=== PATIENT | female | born 1940 | race Caucasian/White ===

== ENCOUNTER 2020-02-28 09:48 | Outpatient (CLI) | payer MEDICARE, SELFPAY ==
[2020-02-28 10:51] LABS: Alanine Aminotransferase 20 U/L (4-35); Albumin Level 4.5 g/dL (3.5-5.1); Alkaline Phosphatase 87 U/L (38-126); Anion Gap 9 mmol/L (8-16); Aspartate Amino Transferase 28 U/L (14-36); Bilirubin,Total 1.7 mg/dL (0.2-1.3); Blood Urea Nitrogen 18 mg/dL (7-17); Calcium 10.2 mg/dL (8.4-10.2); Carbon Dioxide 26 mmol/L (22-30); Chloride 99 mmol/L (98-107); Cholesterol 202 mg/dL (0-200); Estimated Glomerular Filt Rate 43; Glucose 94 mg/dL (65-105); HDL Direct 83 mg/dL; Potassium 4.1 mmol/L (3.4-5.0); Sodium 134 mmol/L (137-145); Triglycerides 87 mg/dL (<150)
[2020-02-28 11:02] LABS: LDL Cholesterol Direct 85 mg/dL
== END 2020-02-28 09:49 | disposition home or self-care (01) ==
PROVIDERS: PCP Internal Medicine; Visit Provider Internal Medicine Cardiovascular Disease
DX: E78.49 Other hyperlipidemia (principal)
CPT/HCPCS: 36415; 80053; 80061

== ENCOUNTER 2021-02-05 13:45 | Outpatient (RCR) | payer MEDICARE, SELFPAY ==
[2021-02-05] MEDS: diphenhydrAMINE HCl CAP 25 MG CAPSULE PO (14:12)
[2021-02-05] MEDS: FAMOTIDINE 20 MG TABLET PO (14:12)
[2021-02-05] MEDS: ACETAMINOPHEN 325 MG TABLET 650 MG PO (14:12)
[2021-02-05 14:26] VITALS: BP 145/63; PULSE 84; RESP 18; TEMP 37.2; O2SAT 97
[2021-02-05 15:58] VITALS: BP 179/64; PULSE 69; RESP 16; TEMP 36.4; O2SAT 100
--- NOTE | 2021-02-05 16:13 | PC.NURSE ---
Patient discharged and sent home with information on medications. All questions answered by RN. Will follow-up with patient tomorrow.
--- NOTE | 2021-02-06 15:32 | PC.NURSE ---
Spoke with patient regarding treatment yesterday. Patient denying any side effects or feeling any worse than prior to treatment.
== END 2021-02-05 16:25 | disposition home or self-care (01) ==
LOC: AMCINF 13:45
PROVIDERS: Referring Provider Nurse Practitioner; Visit Provider Internal Medicine Hematology & Oncology
DX: Z23 Encounter for immunization (principal); U07.1 COVID-19
CPT/HCPCS: A9270; J7050; M0243

== ENCOUNTER 2021-02-11 08:19 | Emergency (ER) | payer MEDICARE, SELFPAY ==
--- NOTE | ~2021-02-11 | XR_ITS ---
EXAMINATION: XR chest 1V portable DATE: 02/11/2021 10:42 INDICATION: Shortness of breath. Chest tightness. COVID-19 pneumonia. TECHNIQUE: A single frontal view of the chest was obtained. COMPARISON: CT abdomen and pelvis 07/09/2016 FINDINGS: There are mild airspace opacities in the lower lung zones. No pleural effusion or pneumotho rax. The heart size is normal. IMPRESSION: 1. Mild airspace opacities in the lower lung zones, consistent with atelectasis versus pneumonia. Reviewed, dictated and finalized at location B.
[2021-02-11 08:28] VITALS: BP 117/56; PULSE 93; RESP 18; TEMP 36.7; O2SAT 97
[2021-02-11 08:33] VITALS: O2SAT 97
--- NOTE | 2021-02-11 10:20 | ECG_ITS ---
Measurements Intervals [place] Rate: 83 P: 84 VA: 146 QRS: 21 QRSD: 82 T: 76 QT: 346 QTc: 407 Interpretive Statements SINUS RHYTHM ATRIAL PREMATURE COMPLEX BASELINE ARTIFACT- I, II, III, AVR, AVL, AVF, V3 BORDERLINE ECG Electronically Signed On 02-11-2021 11:30:02 CDT by Josh Guevara D.O.
[2021-02-11 10:53] LABS: Basophils Percent Auto 0.3 % (0.2-1.2); Eosinophils Percent Auto 0.5 % (0-4.4); Hematocrit 41.5 % (37.0-47.0); Hemoglobin 14.2 g/dL (12.0-15.0); Immature Granulocyte Absolute 0.05 K/mm3 (0.00-0.031); Immature Granulocyte Percent A 0.7 % (0-0.5); Lymphocytes Absolute Auto 1.04 K/mm3 (0.9-3.2); Lymphocytes Percent Auto 14.2 % (18.3-44.2); Mean Corpuscular HGB Conc 34.2 g/dl (32-36); Mean Corpuscular Hemoglobin 30.6 pg (26-34); Mean Corpuscular Volume 89.4 fl (80-100); Mean Platelet Volume 10.2 fl (7.4-10.4); Monocytes Absolute Auto 0.7 K/mm3 (0.1-0.6); Monocytes Percent Auto 10.1 % (2.6-8.5); Neutrophils Absolute Auto 5.4 K/mm3 (1.3-6.7); Neutrophils Percent Auto 74.2 % (45.5-73.1); Platelet Count Result 265 k/mm3 (150-375); Red Blood Count 4.64 M/mm3 (4.2-5.4); White Blood Count 7.3 K/mm3 (4.5-10.0)
[2021-02-11 11:14] LABS: Lactic Acid Reflex 1.6 mmol/L (0.7-2.1)
[2021-02-11 11:15] LABS: Lipase 198 U/L (23-300)
[2021-02-11 11:16] LABS: Add Urine Microscopic? YES; Appearance Urine Cloudy (Clear); Bacteria Urine Trace /hpf; Bilirubin Urine Negative (Negative); Blood Urine Negative (Negative); Color Urine Yellow (Yellow); Glucose Urine UA Negative (Negative); Ketones Urine Negative (Negative); Leukocyte Esterase Ur 1+ LEU/UL (Negative); Mucus Urine Rare /lpf; Nitrate Urine Negative (Negative); Protein Urine Negative (Negative); RBC Urine 0-2 /hpf (0-2); Specific Grav Ur 1.012 (1.001-1.035); Squamous Epithelial Cell Urine Occasional /hpf (Few); Urobilinogen Urine Negative mg/dL (<2.0)
[2021-02-11 11:18] LABS: Alanine Aminotransferase 22 U/L (4-35); Albumin Level 3.8 g/dL (3.5-5.1); Alkaline Phosphatase 95 U/L (38-126); Anion Gap 1 mmol/L (8-16); Aspartate Amino Transferase 30 U/L (14-36); Bilirubin,Total 1.2 mg/dL (0.2-1.3); Blood Urea Nitrogen 26 mg/dL (7-17); CRP 1.3 mg/dL (<1.0); Calcium 9.9 mg/dL (8.4-10.2); Carbon Dioxide 33 mmol/L (22-30); Chloride 90 mmol/L (98-107); Estimated CRCL calculation 30 ml/min; Estimated Glomerular Filt Rate 43; Glucose 107 mg/dL (65-110); Potassium 4.1 mmol/L (3.4-5.0); Sodium 124 mmol/L (137-145)
[2021-02-11 11:22] VITALS: BP 104/52; PULSE 86; RESP 18; O2SAT 97
[2021-02-11] MEDS: LACTATED RINGERS 1,000 ML 999 ML IV CONT (11:22)
[2021-02-11 11:26] LABS: Troponin I < 0.012 ng/mL (0.000-0.034)
[2021-02-11] MEDS: SODIUM CHLORIDE 0.9% IV 1,000 ML 999 ML IV CONT (12:12)
--- NOTE | 2021-02-11 13:14 | ED.GENADULT ---
HPI - General Adult General Chief complaint: Upper Respiratory Infection Stated complaint: COVID+, tense all over Time Seen by Provider: 02/11/21 09:18 Source: patient Mode of arrival: ambulatory Limitations: no limitations Related Data Home Medications Medication Instructions Recorded Confirmed aspirin 81 mg tablet,delayed 81 mg PO DAILY 05/17/19 02/05/21 release zinc 50 mg tablet 50 mg PO DAILY 05/29/20 02/05/21 cholecalciferol (vitamin D3) 125 125 mcg PO DAILY 09/18/20 02/05/21 mcg (5,000 unit) tablet benzonatate 100 mg PO BID 02/05/21 02/05/21 doxycycline hyclate 100 mg PO DAILY 02/05/21 02/05/21 Allergies Allergy/AdvReac Type Severity Reaction Status Date / Time No Known Allergies Allergy Verified 02/11/21 08:37 [facility] Past Medical History Medical History (Updated 02/04/21 @ 14:26 by Daquan Fulton, PharmD) Anemia Carotid artery stenosis BL CKD (chronic kidney disease) Hypercalcemia Hyperlipidemia Hyperparathyroidism Hypertension Hypothyroidism Surgical History Surgical History (Updated 05/17/19 @ 07:01 by Zuleyma Aly CMA) H/O carotid endarterectomy Left & intraoperative US 07/11/2018 History of cataract removal with insertion of prosthetic lens BL 06/2015 Family History Family History (Updated 05/17/19 @ 07:04 by Zuleyma Aly CMA) Mother Hypertension Patient's mother is Sibling Carotid artery stenosis Father Blood clotting disorder Other Family history of lung cancer Social History Social History (Updated 05/17/19 @ 08:30 by Zuleyma Aly CMA) Smoking packs per day: 0.5 Smoking cigarettes per day: 10.0 Years smoked: 55 Smoking pack-years: 27.50 Smoking status: Former smoker Tobacco type: cigarettes Smoking end date: 06/29/17 Alcohol intake: never Substance use: never Gender identity (if verbalized by the patient): Female Spiritual care concerns: No Course Vital Signs Vital signs: Vital Signs Temperature 98.1 F 02/11/21 08:28 Pulse Rate 93 02/11/21 08:28 Respiratory Rate 18 02/11/21 08:28 Blood Pressure 117/56 L 02/11/21 08:28 Pulse Oximetry 97 02/11/21 08:28 Temperature 98.1 F 02/11/21 08:28 Pulse Rate 86 02/11/21 11:22 Respiratory Rate 18 02/11/21 11:22 Blood Pressure 104/52 L 02/11/21 11:22 Pulse Oximetry 97 02/11/21 11:22 Medical Decision Making Vital Signs Vital Signs: Vital Signs Temperature 98.1 F 02/11/21 08:28 Pulse Rate 93 02/11/21 08:28 Respiratory Rate 18 02/11/21 08:28 Blood Pressure 117/56 L 02/11/21 08:28 Pulse Oximetry 97 02/11/21 08:28 Temperature 98.1 F 02/11/21 08:28 Pulse Rate 86 02/11/21 11:22 Respiratory Rate 18 02/11/21 11:22 Blood Pressure 104/52 L 02/11/21 11:22 Pulse Oximetry 97 02/11/21 11:22 Lab Data Result diagrams: 02/11/21 10:44 02/11/21 10:44 Labs: Lab Results 02/11/21 02/11/21 02/11/21 Range/Units 10:44 10:44 10:44 WBC 7.3 (4.5-10.0) K/mm3 RBC 4.64 (4.2-5.4) M/mm3 Hgb 14.2 (12.0-15.0) g/dL Hct 41.5 (37.0-47.0) % MCV 89.4 (80-100) fl MCH 30.6 (26-34) pg MCHC 34.2 (32-36) g/dl RDW 12.0 (11.5-14.5) % Plt Count 265 (150-375) k/mm3 MPV 10.2 (7.4-10.4) fl Immature Gran % (Auto) 0.7 H (0-0.5) % Neut % (Auto) 74.2 H (45.5-73.1) % Lymph % (Auto) 14.2 L (18.3-44.2) % [place] % (Auto) 10.1 H (2.6-8.5) % Eos % (Auto) 0.5 (0-4.4) % Baso % (Auto) 0.3 (0.2-1.2) % Lymph # (Auto) 1.04 (0.9-3.2) K/mm3 [place] # (Auto) 0.7 H (0.1-0.6) K/mm3 Eos # (Auto) 0.0 (0-0.3) K/mm3 Baso # (Auto) 0.0 (0.0-0.1) K/mm3 Abs Immat Gran (auto) 0.05 H (0.00-0.031) K/mm3 Absolute Neuts (auto) 5.4 (1.3-6.7) K/mm3 Absolute Nucleated RBC 0.0 (0.0-0.012) K/mm3 Nucleated RBC % 0.0 (0.0-0.2) % Sodium 124 L (137-145) mmol/L Potassium 4.1 (3.4-5.0) mmol/L Chloride
--- NOTE | 2021-02-11 13:24 | ED.GENADULT ---
HPI - General Adult General Chief complaint: Upper Respiratory Infection Stated complaint: COVID+, tense all over Time Seen by Provider: 02/11/21 09:18 Source: patient Mode of arrival: ambulatory Limitations: no limitations History of Present Illness HPI narrative: Patient is a 80-year-old female who presents for evaluation noting that she has had tenseness since receiving an infusion ordered by primary care for her COVID-19 diagnosis which she has completed patient notes that she does not currently have dyspnea or chest pain or any urinary vaginal or bowel habit issues. She notes she has having a resolving cough. Patient does not smoke. She notes generalized tenseness since receiving the infusion and was told that this is expected. She had the infusion on the . Patient also notes concern for possible dehydration Related Data Home Medications Medication Instructions Recorded Confirmed aspirin 81 mg tablet,delayed 81 mg PO DAILY 05/17/19 02/05/21 release zinc 50 mg tablet 50 mg PO DAILY 05/29/20 02/05/21 cholecalciferol (vitamin D3) 125 125 mcg PO DAILY 09/18/20 02/05/21 mcg (5,000 unit) tablet benzonatate 100 mg PO BID 02/05/21 02/05/21 doxycycline hyclate 100 mg PO DAILY 02/05/21 02/05/21 Allergies Allergy/AdvReac Type Severity Reaction Status Date / Time No Known Allergies Allergy Verified 02/11/21 08:37 Review of Systems Review of Systems: All systems reviewed & are unremarkable except as noted in HPI and below PMFSH Past Medical History Medical History Anemia Carotid artery stenosis BL CKD (chronic kidney disease) Hypercalcemia Hyperlipidemia Hyperparathyroidism Hypertension Hypothyroidism Surgical History Surgical History H/O carotid endarterectomy Left & intraoperative US 07/11/2018 History of cataract removal with insertion of prosthetic lens BL 06/2015 Family History Family History (Updated 05/17/19 @ 07:04 by Zuleyma Aly [facility]) Mother Hypertension Patient's mother is Sibling Carotid artery stenosis Father Blood clotting disorder Other Family history of lung cancer Social History Social History Smoking packs per day: 0.5 Smoking cigarettes per day: 10.0 Years smoked: 55 Smoking pack-years: 27.50 Smoking status: Former smoker Tobacco type: cigarettes Smoking end date: 06/29/17 Alcohol intake: never Substance use: never Gender identity (if verbalized by the patient): Female Spiritual care concerns: No Exam Narrative: GENERAL: Well-appearing, well-nourished, and in no acute distress. HEAD: Normocephalic, atraumatic. EYES: PERRLA and EOMI. ENT: Nares clear, no rhinorrhea or epistaxis. Mucous membranes moist. NECK: Supple. No adenopathy or masses. CHEST: Clear to auscultation. No respiratory distress. No wheezes rales or rhonchi HEART: Regular rate and rhythm. No murmur heard. Normal peripheral pulses. ABDOMEN: Soft, nontender, nondistended EXTREMITIES: Normal range of motion. No edema. SKIN: Warm, dry, no rash. NEURO: No focal deficits. Alert and oriented x3. Cranial nerves II through XII grossly intact PSYCH: Normal mood and affect. Course Course Emergency Course: Patient hemodynamically stable presented for evaluation was found to be dehydrated was addressed given 2 L of fluid in the emergency department was feeling better after this intervention she is nontoxic-appearing without emesis vital signs are intact and stable she will be discharged with outpatient follow-up agrees with this plan has been given strict reasons to return she was made aware of her case findings Vital Signs Vital signs: Vital Signs Temperature 98.1 F 02/11/21 08:28 Pulse Rate 93 02/11/21 08:28 Respiratory Rate 18 02/11/21 08:28 Blood Pressure 117/56 L
[2021-02-11 13:42] VITALS: BP 115/69; PULSE 83; RESP 18; O2SAT 99
--- NOTE | 2021-02-11 13:43 | PC.NURSE ---
pt waiting on ride home. pt covid +
== END 2021-02-11 13:55 | disposition home or self-care (01) ==
PROVIDERS: Emergency Medicine Emergency Medical Services; Emergency Provider Emergency Medicine; PCP Internal Medicine
DX: U07.1 COVID-19 (principal); E86.0 Dehydration; I65.23 Occlusion and stenosis of bilateral carotid arteries; I12.9 Hypertensive chronic kidney disease with stage 1 through stage 4 chronic kidney disease, or unspecified chronic kidney disease; N18.9 Chronic kidney disease, unspecified; E83.52 Hypercalcemia; E78.5 Hyperlipidemia, unspecified; Z98.49 Cataract extraction status, unspecified eye; Z96.1 Presence of intraocular lens; Z87.891 Personal history of nicotine dependence; R91.8 Other nonspecific abnormal finding of lung field; I49.1 Atrial premature depolarization; R82.998 Other abnormal findings in urine
CPT/HCPCS: 36415; 71045; 80053; 81001; 83605; 83690; 84484; 85025; 86140; 87077; 87086; 87186; 93005; 96360; 96361; 99284; J7030; J7120

== ENCOUNTER 2021-02-13 07:18 | Emergency (ER) | payer MEDICARE, SELFPAY ==
[2021-02-13] VITALS (24 sets, daily range): BP systolic 102–186; BP diastolic 50–74; PULSE 70–89; RESP 14–20; TEMP 36.5–36.8; O2SAT 96–100
--- NOTE | ~2021-02-13 | XR_ITS ---
XR chest 2V 02/13/2021 08:08 Indication: Chest pain and anxiety Procedure: 2 view chest Comparison: 02/11/2021 Findings: Heart size normal. There are bibasilar infiltrates unchanged. The lungs are hyperinflated w hich is consistent with, but not diagnostic of chronic obstructive pulmonary disease. There is athero sclerosis of the aorta. No acute osseous abnormality. Impression: 1: Persistent bibasilar infiltrates which may represent atelectasis or less likely pneumonia. Reviewed, dictated and finalized at location A. Impression: 1: Persistent bibasilar infiltrates which may represent atelectasis or less lik rimma pneumonia.
--- NOTE | ~2021-02-13 | CT_ITS ---
EXAMINATION: CTA chest PE protocol DATE: 02/13/2021 09:57 INDICATION: Chest pain. COVID-19 positive. TECHNIQUE: Computed tomography angiography (CTA) of the chest was performed with 100 mL Omnipaque-350 intravenous contrast timed to evaluate the pulmonary arteries. Coronal maximum intensity projection 3D-reconstructions were created by the technologist. Automated exposure control and iterative reconst ruction technique were employed. The dose-length product was 276.65 mGy-cm. COMPARISON: CT abdomen and pelvis 07/09/2016 FINDINGS: There is mild scarring at the lung apices. There is moderate emphysema. There are periphera l patchy airspace opacities in the basilar lower lobes. No pleural effusion. There is left atrial enl argement of the heart. There are coronary artery calcifications. No pericardial effusion. There is no pulmonary embolus. The central pulmonary arteries are enlarged, consistent with pulmonary arterial h ypertension. There is a 1.7 cm mass in medial left breast. There is chronic thickening in the adrenal glands, likely benign. There is a chronic 13 mm subcutaneous mass in the epigastric region, likely a sebaceous cyst. There is kyphosis and moderate spondylosis of thoracic spine. IMPRESSION: 1. No pulmonary embolus. 2. Peripheral patchy airspace opacities in the basilar lower lobes, consistent with COVID-19 pneumoni a. 3. Moderate emphysema. 4. 1.7 cm left breast mass. A diagnostic mammogram and ultrasound are recommended. Reviewed, dictated and finalized at location B. IMPRESSION: 1. No pulmonary embolus. 2. Peripheral patchy airspace opacities in the basilar lower lobes, consistent with COVID-19 pneumonia. 3. Moderate emphysema. 4. 1.7 cm left breast mass. A diagnostic mammogram and ultrasound are recommend ed.
--- NOTE | 2021-02-13 07:31 | ECG_ITS ---
Measurements Intervals [place] Rate: 90 P: 90 MA: 143 QRS: 33 QRSD: 86 T: 74 QT: 319 QTc: 392 Interpretive Statements SINUS RHYTHM INCOMPLETE RIGHT BUNDLE BRANCH BLOCK BASELINE ARTIFACT- I, II, III, AVR, AVL, V4-V5 BORDERLINE ECG Electronically Signed On 02-13-2021 7:51:46 CDT by Josh Guevara D.O.
[2021-02-13 07:59] LABS: Basophils Percent Auto 0.4 % (0.2-1.2); Eosinophils Absolute Auto 0.1 K/mm3 (0-0.3); Eosinophils Percent Auto 1.2 % (0-4.4); Hemoglobin 13.8 g/dL (12.0-15.0); Immature Granulocyte Absolute 0.02 K/mm3 (0.00-0.031); Immature Granulocyte Percent A 0.4 % (0-0.5); Lymphocytes Absolute Auto 1.11 K/mm3 (0.9-3.2); Lymphocytes Percent Auto 21.5 % (18.3-44.2); Mean Corpuscular HGB Conc 34.5 g/dl (32-36); Mean Corpuscular Hemoglobin 30.9 pg (26-34); Mean Corpuscular Volume 89.7 fl (80-100); Mean Platelet Volume 10.2 fl (7.4-10.4); Monocytes Absolute Auto 0.5 K/mm3 (0.1-0.6); Monocytes Percent Auto 10.4 % (2.6-8.5); Neutrophils Absolute Auto 3.4 K/mm3 (1.3-6.7); Neutrophils Percent Auto 66.1 % (45.5-73.1); Platelet Count Result 264 k/mm3 (150-375); Red Blood Count 4.46 M/mm3 (4.2-5.4); Red Cell Distribution Width 11.9 % (11.5-14.5); White Blood Count 5.2 K/mm3 (4.5-10.0)
[2021-02-13 08:10] LABS: Anion Gap 5 mmol/L (8-16); Blood Urea Nitrogen 13 mg/dL (7-17); Carbon Dioxide 29 mmol/L (22-30); Chloride 92 mmol/L (98-107); Estimated CRCL calculation 38 ml/min; Estimated Glomerular Filt Rate 60; Glucose 116 mg/dL (65-110); Potassium 4.1 mmol/L (3.4-5.0); Sodium 126 mmol/L (137-145)
[2021-02-13 08:10] LABS: Partial Thromboplastin Time 24.1 SECONDS (22.3-36.8)
[2021-02-13 08:13] LABS: INR 0.9; Prothrombin Time 11.9 Seconds (11.1-14.7)
[2021-02-13 08:22] LABS: Troponin I < 0.012 ng/mL (0.000-0.034)
--- NOTE | 2021-02-13 08:30 | ED.CHESTPAIN ---
HPI - Chest Pain General Chief Complaint: Chest Pain Stated Complaint: chest pain, tension Time Seen by Provider: 02/13/21 07:23 History of Present Illness HPI narrative: This is a 81 year old female with history of hypertension who presents for evaluation of tension and chest pain. Patient was evaluated in ER 2 days ago for increased body tension and chest tightness. She has returned to ER this morning because she states she woke up a few hours ago feeling tense again. She also reports tightness across her chest pain. This feeling has been constant since she woke up a few hours. She reports mild shortness of breath. She denies associated diaphoresis, nausea, vomiting, abdominal pain, dizziness, cough or fever. She also denies leg swelling or calf pain. She called her PCP after her last ER visit and she was told that she needed to have sodium checked. She reports she is drinking alot of water but she has decreased appetite. she denies cardiac history. Related Data Home Medications Medication Instructions Recorded Confirmed aspirin 81 mg tablet,delayed 81 mg PO DAILY 05/17/19 02/05/21 release benzonatate 100 mg PO BID 02/05/21 02/05/21 doxycycline hyclate 100 mg PO DAILY 02/05/21 02/05/21 Allergies Allergy/AdvReac Type Severity Reaction Status Date / Time No Known Allergies Allergy Verified 02/13/21 07:29 Review of Systems Review of Systems: All systems reviewed & are unremarkable except as noted in HPI and below PMFSH Past Medical History Medical History (Updated 02/13/21 @ 13:27 by Catrina Hansen MA) Anemia Anxiety Breast mass, left Carotid artery stenosis BL CKD (chronic kidney disease) Hypercalcemia Hyperlipidemia Hyperparathyroidism Hypertension Hypothyroidism Surgical History Surgical History H/O carotid endarterectomy Left & intraoperative US 07/11/2018 History of cataract removal with insertion of prosthetic lens BL 06/2015 Family History Family History (Updated 05/17/19 @ 07:04 by Zuleyma Aly CMA) Mother Hypertension Patient's mother is Sibling Carotid artery stenosis Father Blood clotting disorder Other Family history of lung cancer Social History Social History Smoking packs per day: 0.5 Smoking cigarettes per day: 10.0 Years smoked: 55 Smoking pack-years: 27.50 Smoking status: Former smoker Tobacco type: cigarettes Smoking end date: 06/29/17 Alcohol intake: never Substance use: never Gender identity (if verbalized by the patient): Female Spiritual care concerns: No Exam Narrative: GENERAL: Well-appearing, well-nourished, and in no acute distress. HEAD: Normocephalic, atraumatic EYES: PERRLA and EOMI, conjunctiva clear without discharge THROAT:Mucous membranes moist, Oropharynx normal without erythema, exudate, peritonsillar swelling or fluctuance NECK: Supple, without lymphadenopathy or mass RESPIRATORY: No respiratory distress, Airway patent, Respirations non-labored, Clear to auscultation without rales, rhonchi or wheeze HEART: Regular rate and rhythm. No murmur heard. Normal peripheral pulses. ABDOMEN: Soft, nontender, nondistended, normal active bowel sounds. No masses. No rebound or guarding, No organomegaly. EXTREMITIES: No edema, normal strength with full range of motion. SKIN: Warm, dry, normal color without rash NEURO: Alert and oriented x3. CN 2-12 grossly intact. No focal deficits. PSYCH: Normal mood and affect. Course Reevaluation(s) Reevaluation #1: I discussed with patient labs. She has hyponatremia this is improving. Her chest pain is atypical. I discussed she has been found to have covid pneumonia but she is not requiring oxygen. She is 100% on room air without shortness of breath. I spoke with [employer] D[employer] ANALYST for Dr. Bazan and they will follow patient's la
[2021-02-13] MEDS: ALBUTEROL SULFATE (*SP) AEROSOL 1 PUFF 2 PUFF INHALATION (08:34)
[2021-02-13 08:49] LABS: Alveolar/Arterial O2 Gradient 32.1 mmHg; Base Excess ABG 3.2 mEq/l (+/-2.0); Carboxyhemoglobin 0.7 % THb (0-2.0); Fractional Inspired Oxygen 21 %; HCO3 ABG 26.6 mEq/l (22.0-26.0); Methemoglobin ABG 0.2 %THb (0-1.5); Oxygen Content ABG 17.9 %vol (16.0-22.0); Oxygen Saturation ABG 95.7 % (95.0-100.0); Oxyhemoglobin 93.9 % THb (90.0-100.0); PCO2 ABG 36.8 mmHg (35.0-45.0); PO2 ABG 73.6 mmHg (80.0-100.0); Reduced Hemoglobin 5.2 %THb (0-5.0); Total Hemoglobin 13.5 g/dL (12.0-18.0); pH ABG 7.477 (7.350-7.450)
[2021-02-13 08:50] LABS: Device ROOM AIR; Site Drawn RIGHT BRACHIAL
[2021-02-13] MEDS: LORazepam (*CRX) 0.5 MG TABLET PO (09:00)
[2021-02-13 09:34] LABS: D Dimer 1.21 ug/mL (<0.48)
--- NOTE | 2021-02-13 10:14 | PC.NURSE ---
Dr. Hernandez at bedside to discuss results and treatment plan with pt.
[2021-02-13] MEDS: KETOROLAC 15 MG/ML VIAL (*BKC) IV PUSH (10:55)
[2021-02-13] MEDS: SODIUM CHLORIDE 0.9% IV 1,000 ML 999 ML IV CONT (10:55)
[2021-02-13 11:17] LABS: Troponin I < 0.012 ng/mL (0.000-0.034)
== END 2021-02-13 12:35 | disposition home or self-care (01) ==
PROVIDERS: Emergency Provider General Practice; PCP Internal Medicine
DX: U07.1 COVID-19 (principal); J12.82 Pneumonia due to coronavirus disease 2019; E87.1 Hypo-osmolality and hyponatremia; I65.23 Occlusion and stenosis of bilateral carotid arteries; I12.9 Hypertensive chronic kidney disease with stage 1 through stage 4 chronic kidney disease, or unspecified chronic kidney disease; N18.9 Chronic kidney disease, unspecified; E78.5 Hyperlipidemia, unspecified; E21.3 Hyperparathyroidism, unspecified; E03.9 Hypothyroidism, unspecified; Z86.2 Personal history of diseases of the blood and blood-forming organs and certain disorders involving the immune mechanism; Z98.42 Cataract extraction status, left eye; Z98.41 Cataract extraction status, right eye; Z96.1 Presence of intraocular lens; Z87.891 Personal history of nicotine dependence; J43.9 Emphysema, unspecified; N63.20 Unspecified lump in the left breast, unspecified quadrant; I45.10 Unspecified right bundle-branch block
CPT/HCPCS: 36415; 36600; 71046; 71275; 80048; 82375; 82805; 83050; 84484; 85025; 85380; 85610; 85730; 93005; 94640; 96361; 96374; 99284; A9270; J1885; J7030; Q9967

== ENCOUNTER 2021-02-15 07:36 | Outpatient (CLI) | payer MEDICARE, SELFPAY ==
[2021-02-15 09:46] LABS: Anion Gap 4 mmol/L (8-16); Blood Urea Nitrogen 10 mg/dL (7-17); Calcium 9.9 mg/dL (8.4-10.2); Carbon Dioxide 28 mmol/L (22-30); Chloride 100 mmol/L (98-107); Estimated Glomerular Filt Rate > 60; Glucose 94 mg/dL (65-110); Potassium 5.3 mmol/L (3.4-5.0); Sodium 132 mmol/L (137-145)
== END 2021-02-15 07:37 | disposition home or self-care (01) ==
LOC: ANHLAB 07:40
PROVIDERS: PCP Internal Medicine; Visit Provider Clinical Nurse Specialist
DX: E87.1 Hypo-osmolality and hyponatremia (principal)
CPT/HCPCS: 36415; 80048

== ENCOUNTER 2021-02-18 07:00 | Outpatient (CLI) | payer MEDICARE, SELFPAY ==
[2021-02-18 07:50] LABS: Anion Gap 8 mmol/L (8-16); Blood Urea Nitrogen 9 mg/dL (7-17); Calcium 9.8 mg/dL (8.4-10.2); Carbon Dioxide 25 mmol/L (22-30); Chloride 97 mmol/L (98-107); Estimated Glomerular Filt Rate 60; Glucose 91 mg/dL (65-110); Potassium 4.1 mmol/L (3.4-5.0); Sodium 130 mmol/L (137-145)
== END 2021-02-18 07:01 | disposition home or self-care (01) ==
PROVIDERS: PCP Internal Medicine; Visit Provider Clinical Nurse Specialist
DX: E87.1 Hypo-osmolality and hyponatremia (principal)
CPT/HCPCS: 36415; 80048

== ENCOUNTER 2021-02-26 06:55 | Outpatient (CLI) | payer MEDICARE, SELFPAY ==
[2021-02-26 08:17] LABS: Anion Gap 5 mmol/L (8-16); Blood Urea Nitrogen 13 mg/dL (7-17); Calcium 9.8 mg/dL (8.4-10.2); Carbon Dioxide 28 mmol/L (22-30); Chloride 105 mmol/L (98-107); Estimated Glomerular Filt Rate > 60; Glucose 91 mg/dL (65-110); Potassium 4.4 mmol/L (3.4-5.0); Sodium 138 mmol/L (137-145)
== END 2021-02-26 06:56 | disposition home or self-care (01) ==
PROVIDERS: PCP Internal Medicine; Visit Provider Internal Medicine
DX: E87.1 Hypo-osmolality and hyponatremia (principal)
CPT/HCPCS: 36415; 80048

== ENCOUNTER 2021-03-07 12:04 | Outpatient (CLI) | payer MEDICARE, SELFPAY ==
--- NOTE | ~2021-03-07 | MMUS_ITS ---
EXAMINATION: MM diagnostic twin BI w lorenzo, US breast LT limited HISTORY: 1.7 cm left breast mass reported on 02/13/2021 CT pulmonary scan TECHNIQUE: Bilateral full field ML, MLO and craniocaudal and left ML, MLO and craniocaudal spot 3-D t omosynthesis images of were performed and synthetic 2-D images were generated. CAD analysis was submi tted and interpreted. High resolution lower inner quadrant left breast ultrasound was performed. COMPARISON: 02/13/2021 CT pulmonary scan BREAST PARENCHYMAL COMPOSITION: There are scattered areas of fibroglandular density. FINDINGS: MAMMOGRAPHIC FINDINGS: A 1.7 cm irregular hypodensity mammographic mass is confirmed in the posterior aspect of the lower in ner quadrant of the left breast. The irregular margins and spiculation and high density are very sugg estive of malignancy. No suspicious mass, architectural distortion, malignant constipation, skin thickening or retraction i s detected otherwise. ULTRASOUND: Left breast 7:00 5 cm from nipple: There is a very irregular spiculated hypoechoic mass with internal vascularity on color flow examination, measuring approximately 1.5 cm dimension, highly suggestive o f malignancy. IMPRESSION: 1. 1.5 cm irregular lower inner quadrant left breast mass at 7:00, highly suggestive of malignancy 2. Ultrasound-guided biopsy is recommended BI-RADS category 5, highly suggestive of malignancy Dr. Perez telephoned the report and ultrasound-guided biopsy recommendation to Dr. Barbosa's voicema il on 03/08/2021 at 0809 hours. Reviewed, dictated and finalized at location A. IMPRESSION: 1. 1.5 cm irregular lower inner quadrant left breast mass at 7:00, highly sugge stive of malignancy 2. Ultrasound-guided biopsy is recommended BI-RADS category 5, highly suggestive of malignancy Dr. Perez telephoned the report and ultrasound-guided biopsy recommendation to Lluvia Barbosa's voicemail on 03/08/2021 at 0809 hours.
== END 2021-03-07 12:05 | disposition home or self-care (01) ==
LOC: ANHIMG 12:09
PROVIDERS: PCP Internal Medicine; Visit Provider Clinical Nurse Specialist
DX: N63.24 Unspecified lump in the left breast, lower inner quadrant (principal)
CPT/HCPCS: 76642; 77062; 77066; G0279

== ENCOUNTER → 2021-04-24 15:09 | Outpatient (CLI) | payer MEDICARE, SELFPAY ==
--- NOTE | ~2021-04-24 | XR_ITS ---
EXAMINATION: XR chest 2V DATE: 04/24/2021 15:21 INDICATION: Cough and shortness of breath. COVID-19 pneumonia in 01/2021. TECHNIQUE: Frontal and lateral views of the chest were obtained. COMPARISON: Chest CT 02/13/2021, chest 2 views 02/13/2021 FINDINGS: The lungs are hyperexpanded, consistent with emphysema. There is mild scarring at the lung apices. There are mild airspace opacities at the lung bases, consistent with atelectasis versus scarr ing. No pleural effusion or pneumothorax. The heart size is normal. IMPRESSION: 1. Emphysema. 2. Mild scarring at the lung apices and mild atelectasis versus scarring at the lung bases. Reviewed, dictated and finalized at location A.
== END ==
PROVIDERS: PCP Internal Medicine; Visit Provider Clinical Nurse Specialist
DX: U07.1 COVID-19 (principal); J12.82 Pneumonia due to coronavirus disease 2019; J43.9 Emphysema, unspecified; R91.8 Other nonspecific abnormal finding of lung field
CPT/HCPCS: 71046

== ENCOUNTER 2021-05-17 08:56 | Outpatient (CLI) | payer MEDICARE, SELFPAY ==
--- NOTE | 2021-05-17 16:09 | WPDPFTINT ---
PFT Procedure Performed PFT Procedure Performed Spirometry with Pre/Post Bronchodilator Plethysmography (Lung Vol) Diffusing Cap (DLCO) Flow Vol Loop PFT Interpretation This is a pulmonary function test with pre and post-bronchodilator spirometry, plethysmography and diffusing capacity. The test was performed and results interpreted in accordance with the 2019 and 2005 ATS/ERS Task Force guidelines respectively using the Global Lung Function Initiative-2012 reference equations. Patient demonstrated good effort and cooperation. Reproducibility criteria were met. The quality of the pre bronchodilator spirometry maneuver was Grade A and post bronchodilator spirometry maneuver was Grade A. Findings: Spirometry: There is decreased maximal expiratory airflow at all lung volumes with concave expiratory flow tracing. Contour of the inspiratory flow tracing is normal. The pre bronchodilator FVC is 1.99 L, 86% predicted. The pre bronchodilator FEV1 is 0.97 L, 55% predicted. The pre bronchodilator FEV1: FVC ratio is 49%. The post bronchodilator FVC is 2.10 L, representing a 5% increase. The post bronchodilator FEV1 is 1.01 L, representing a 4% increase. The post bronchodilator FEV1: FVC ratio is 48%. Plethysmography: The total lung capacity is 4.90, 106% predicted. Functional residual capacity is 3.35 L, 127% predicted. The residual volume is 2.70, 122% predicted. Diffusion capacity: The absolute diffusion capacity is 9.6, 52% predicted. Diffusing capacity corrected for alveolar volume is 2.89, 68% predicted. Impression: There is a moderately severe obstructive abnormality without significant improvement after inhaling a single dose of albuterol. The lung volumes are normal. The absolute diffusing capacity is moderately decreased and remains mildly decreased when corrected for alveolar volume. There are no prior studies for comparison
== END 2021-05-17 08:57 | disposition home or self-care (01) ==
LOC: ANHPFT 08:59
PROVIDERS: PCP Internal Medicine; Visit Provider Clinical Nurse Specialist
DX: J43.9 Emphysema, unspecified (principal); R94.2 Abnormal results of pulmonary function studies
CPT/HCPCS: 94060; 94726; 94729

== ENCOUNTER 2021-10-07 07:20 | Outpatient (CLI) | payer MEDICARE, SELFPAY ==
--- NOTE | 2021-10-07 07:30 | ECHO_ITS ---
Patient Info Name: Hermila Shanks Age: 81 years : 1940 Gender: Female Ht: 61 in Wt: 160 lbs BSA: 1.79 m2 HR: 74 bpm BP: 168 / 77 mmHg Technical Quality: Fair Exam Date: 10/07/2021 7:41 AM Exam Location: [facility] Patient Status: Outpatient Admit Date: 10/07/2021 Staff Ordering Physician: Josh Guevara DO Service Dismantler: Magalie Montejo RDCS Attending Provider: Josh Guevara DO Referring Physician: Ismael CHAMBERLAIN; Exam Type: CA echo doppler color flow Study Info Indications R06.00 - Dyspnea, unspecified Complete two-dimensional, color flow and Doppler transthoracic echocardiogram is performed. Summary 1. Complete two-dimensional, color flow and Doppler transthoracic echocardiogram is performed. 2. Left ventricular chamber dimension is normal. 3. Left ventricular systolic function is normal, estimated at 60-65%. 4. There is mildly increased left ventricular wall thickness. 5. The left ventricular diastolic function is grade I diastolic dysfunction. 6. E/e' 12 is mildly elevated. 7. Global longitudinal strain is normal at -19.1%. 8. Left atrial chamber dimension is moderately enlarged. 9. There is mild aortic valve sclerosis. 10. There is mild tricuspid valve regurgitation. 11. Mild pulmonary hypertension, estimated pulmonary arterial systolic pressure is 48 mmHg. Left Ventricle E/e' 12 is mildly elevated. Global longitudinal strain is normal at -19.1%. Left ventricular chamber dimension is normal. Left ventricular systolic function is normal, estimated at 60-65%. There is mildly increased left ventricular wall thickness. The left ventricular diastolic function is grade I diastolic dysfunction. Right Ventricle Right ventricular systolic function is normal and with normal TAPSE 2.3 cm. Right ventricular chamber dimension is normal. Left Atria Left atrial chamber dimension is moderately enlarged. Right Atria Right atrial chamber dimension is normal. Aortic Valve The aortic valve is trileaflet. There is mild aortic valve sclerosis. There is no aortic valve stenosis. There is no aortic valve regurgitation. Pulmonic Valve There is no pulmonic regurgitation. Mitral Valve There is no mitral valve stenosis. There is no mitral valve regurgitation. Tricuspid Valve There is mild tricuspid valve regurgitation. Mild pulmonary hypertension, estimated pulmonary arterial systolic pressure is 48 mmHg. Pericardium/Pleural There is no pericardial effusion. Inferior Vena Cava Normal inferior vena cava with >50% collapse upon inspiration consistent with normal right atrial pressure, 5 mmHg. Aorta The aortic root size at the sinus of Valsalva is normal. Left Ventricular Outflow Tract Name Value Normal LVOT 2D LVOT Diameter 1.9 cm LVOT Doppler LVOT Peak Gradient 6 mmHg LVOT Mean Gradient 3 mmHg LVOT VTI 27 cm LVOT VTI/AV VTI Ratio 0.7 LVOT Stroke Volume 77 ml LVOT CO 4.6 l/min
== END 2021-10-07 07:21 | disposition home or self-care (01) ==
LOC: ANHCARD 07:23
PROVIDERS: PCP Internal Medicine; Visit Provider Internal Medicine Cardiovascular Disease
DX: R06.00 Dyspnea, unspecified (principal); I08.3 Combined rheumatic disorders of mitral, aortic and tricuspid valves
CPT/HCPCS: 93306

== ENCOUNTER 2022-03-10 10:47 | Outpatient (CLI) | payer MEDICARE, SELFPAY ==
[2022-03-10 19:03] LABS: Basophils Percent Auto 0.7 % (0.2-1.2); Eosinophils Percent Auto 0.9 % (0-4.4); Hematocrit 44.5 % (37.0-47.0); Hemoglobin 14.8 g/dL (12.0-15.0); Lymphocytes Percent Auto 22.4 % (18.3-44.2); Mean Corpuscular HGB Conc 33.3 g/dl (32-36); Mean Corpuscular Hemoglobin 30.5 pg (26-34); Mean Corpuscular Volume 91.8 fl (80-100); Mean Platelet Volume 11.4 fl (7.4-10.4); Monocytes Absolute Auto 0.5 K/mm3 (0.1-0.6); Monocytes Percent Auto 10.5 % (2.6-8.5); Neutrophils Absolute Auto 2.9 K/mm3 (1.3-6.7); Neutrophils Percent Auto 65.5 % (45.5-73.1); Platelet Count Result 180 k/mm3 (150-375); Red Blood Count 4.85 M/mm3 (4.2-5.4); Red Cell Distribution Width 12.3 % (11.5-14.5); White Blood Count 4.5 K/mm3 (4.5-10.0)
[2022-03-10 19:08] LABS: Alanine Aminotransferase 21 U/L (6-35); Albumin Level 4.6 g/dL (3.5-5.1); Alkaline Phosphatase 112 U/L (38-126); Anion Gap 12 mmol/L (8-16); Aspartate Amino Transferase 35 U/L (14-36); Bilirubin,Total 2.4 mg/dL (0.2-1.3); Blood Urea Nitrogen 16 mg/dL (7-17); Calcium 10.4 mg/dL (8.4-10.2); Carbon Dioxide 28 mmol/L (22-30); Chloride 101 mmol/L (98-107); Cholesterol 205 mg/dL (0-200); Estimated Glomerular Filt Rate 60; Glucose 90 mg/dL (65-110); HDL Direct 87 mg/dL; Potassium 4.7 mmol/L (3.4-5.0); Sodium 141 mmol/L (137-145); Triglycerides 72 mg/dL (<150)
[2022-03-10 19:19] LABS: LDL Cholesterol Direct 81 mg/dL
== END 2022-03-10 10:48 | disposition home or self-care (01) ==
PROVIDERS: PCP Internal Medicine; Visit Provider Clinical Nurse Specialist
DX: I10 Essential (primary) hypertension (principal)
CPT/HCPCS: 36415; 80053; 80061; 84443; 85025

== ENCOUNTER 2022-03-12 09:06 | Outpatient (CLI) | payer MEDICARE, SELFPAY ==
[2022-03-12 18:55] LABS: Alanine Aminotransferase 20 U/L (6-35); Albumin Level 4.2 g/dL (3.5-5.1); Alkaline Phosphatase 99 U/L (38-126); Anion Gap 6 mmol/L (8-16); Aspartate Amino Transferase 52 U/L (14-36); Bilirubin Indirect 1.4 mg/dL (0-1.1); Bilirubin,Total 1.6 mg/dL (0.2-1.3); Blood Urea Nitrogen 19 mg/dL (7-17); Calcium 10.4 mg/dL (8.4-10.2); Carbon Dioxide 27 mmol/L (22-30); Chloride 101 mmol/L (98-107); Estimated Glomerular Filt Rate 60; Glucose 93 mg/dL (65-110); Sodium 134 mmol/L (137-145)
== END 2022-03-12 09:07 | disposition home or self-care (01) ==
PROVIDERS: PCP Internal Medicine; Visit Provider Clinical Nurse Specialist
DX: R17 Unspecified jaundice (principal)
CPT/HCPCS: 36415; 80053; 82248

== ENCOUNTER 2022-12-15 17:08 | Emergency (ER) | payer MEDICARE, SELFPAY ==
--- NOTE | 2022-12-15 17:13 | ED.FEMALEGU ---
HPI - Female Genitourinary General Chief complaint: Urogenital-Female Stated complaint: BLOOD IN URINE Time Seen by Provider: 12/15/22 17:14 Source: patient Mode of arrival: ambulatory Limitations: no limitations History of Present Illness HPI Narrative: Mrs. Coles is a an 82-year-old female patient presenting to the clinic today with complaints of blood in her urine that occurred around 230 this afternoon. She reports she had slight burning and blood in her urine. Denies any fever, chills, back pain, or abdominal pain. Related Data Home Medications Medication Instructions Recorded Confirmed aspirin 81 mg tablet,delayed 81 mg PO DAILY 05/17/19 12/15/22 release (Adult Low Dose Aspirin) letrozole 2.5 mg tablet 2.5 mg PO DAILY 09/17/21 12/15/22 cholecalciferol (vitamin D3) 25 25 mcg PO DAILY 03/10/22 12/15/22 mcg (1,000 unit) capsule Allergies Allergy/AdvReac Type Severity Reaction Status Date / Time No Known Allergies Allergy Verified 12/15/22 17:14 Review of Systems Review of Systems: Pertinent positives per HPI. Patient denies any fever, chills, rash, headache, visual changes, dizziness, cough, runny nose, sore throat, shortness of breath, chest pain, palpitations, nausea, vomiting, diarrhea, constipation, abdominal pain. [facility] Past Medical History Medical History Anemia Anxiety Breast mass, left Carotid artery stenosis BL CKD (chronic kidney disease) Decreased breath sounds Hypercalcemia Hyperlipidemia Hyperparathyroidism Hypertension Hypothyroidism Surgical History Surgical History H/O carotid endarterectomy Left & intraoperative US 07/11/2018 History of cataract removal with insertion of prosthetic lens BL 06/2015 Family History Family History Mother Hypertension Patient's mother is Sibling Carotid artery stenosis Father Blood clotting disorder Other Family history of lung cancer Social History Social History Smoking packs per day: 0.5 Smoking cigarettes per day: 10.0 Years smoked: 55 Smoking pack-years: 27.50 Smoking status: Former smoker Tobacco type: cigarettes Smoking end date: 06/29/17 Alcohol intake: never Substance use: never Gender identity (if verbalized by the patient): Female Spiritual care concerns: No Comments At the time of my signature, I reviewed and agree with the nursing past medical, surgical, social, and family history. There is no relevant family history pertinent to the patient complaint. Exam Narrative: General: Well-developed, well nourished, in no apparent distress. Head: Normocephalic, atraumatic. Cardio: Regular rate and rhythm, s1 and s2 normal, no murmur appreciated. Resp: Clear to auscultation bilaterally, no rhonchi, rales, wheezing or rubs. Abdomen: Soft, pliable, bowel sounds present in all quadrants, non-tender to palpation, no organomegly, no CVAT tenderness. Course Course Emergency Course: Portions of this record may have been created with voice recognition software. Level of Care: Express Care Visit Vital Signs Vital signs: Vital signs reviewed MDM - Female Genitourinary MDM Narrative Medical decision making narrative: At the time of visit patient is resting comfortably on the exam table. UA is positive for gross blood that has skewed are dip results. Will place the patient on ciprofloxacin and send urine for culture. Discussed red flag symptoms with the patient and she voiced understanding. Supportive measures were discussed with the patient she voiced understanding discharge instructions agrees to treatment plan. Differential Diagnosis Differential diagnosis: Likely urinary tract infection and cystitis Discharge Plan Di
[2022-12-15 17:27] VITALS: BP 150/62; PULSE 88; RESP 16; TEMP 36.8; O2SAT 98
== END 2022-12-15 17:41 | disposition home or self-care (01) ==
PROVIDERS: Emergency Provider Nurse Practitioner Family; PCP Internal Medicine
DX: N30.01 Acute cystitis with hematuria (principal); Z87.891 Personal history of nicotine dependence; I12.9 Hypertensive chronic kidney disease with stage 1 through stage 4 chronic kidney disease, or unspecified chronic kidney disease; N18.9 Chronic kidney disease, unspecified; I65.23 Occlusion and stenosis of bilateral carotid arteries; E78.5 Hyperlipidemia, unspecified; E03.9 Hypothyroidism, unspecified; E21.3 Hyperparathyroidism, unspecified; Z98.42 Cataract extraction status, left eye; Z98.41 Cataract extraction status, right eye; Z96.1 Presence of intraocular lens; Z79.82 Long term (current) use of aspirin
CPT/HCPCS: 81003; 87077; 87086; 87186; 99213; G0463

== ENCOUNTER 2023-01-12 10:17 | Outpatient (CLI) | payer MEDICARE, SELFPAY ==
[2023-01-12 13:55] LABS: Appearance Urine Clear (Clear); Bilirubin Urine Negative (Negative); Blood Urine Negative (Negative); Color Urine Yellow (Yellow); Glucose Urine UA Negative (Negative); Ketones Urine Negative (Negative); Leukocyte Esterase Ur Negative LEU/UL (Negative); Nitrate Urine Negative (Negative); Protein Urine Negative (Negative); Specific Grav Ur 1.004 (1.001-1.035); Urobilinogen Urine 0.2 mg/dL (<2.0); pH Urine 7.5 (5.0-9.0)
[2023-01-12 14:13] LABS: Add Urine Microscopic? NO
== END 2023-01-12 10:18 | disposition home or self-care (01) ==
LOC: ANHGOSHLAB 10:20
PROVIDERS: PCP Internal Medicine; Visit Provider Clinical Nurse Specialist
DX: N39.0 Urinary tract infection, site not specified (principal)
CPT/HCPCS: 81003

== ENCOUNTER 2023-03-06 18:38 | Emergency (ER) | payer MEDICARE, SELFPAY ==
[2023-03-06 18:46] VITALS: BP 117/85; PULSE 93; RESP 16; TEMP 36.8; O2SAT 99
--- NOTE | 2023-03-06 18:47 | ED.GENADULT ---
HPI - General Adult General Chief complaint: Extremity Problem,Nontraumatic Stated complaint: TOENAIL PROBLEMS Time Seen by Provider: 03/06/23 18:49 Source: patient Mode of arrival: ambulatory Limitations: no limitations History of Present Illness HPI narrative: 83 y/o female presented for c/o left great toenail fell off just DEVELOPMENT MGR. States she has chronic toenail fungus, and the great toenails have been loose for a while. Has been using nonoxynol-9 for the fungus. Denies pain or bleeding when the nail fell off today. Has not been evaluated by audio experience expert. Denies pain, drainage, swelling, fever. Related Data Home Medications Medication Instructions Recorded Confirmed aspirin 81 mg tablet,delayed 81 mg PO DAILY 05/17/19 03/06/23 release (Adult Low Dose Aspirin) letrozole 2.5 mg tablet 2.5 mg PO DAILY 09/17/21 03/06/23 cholecalciferol (vitamin D3) 25 25 mcg PO DAILY 03/10/22 03/06/23 mcg (1,000 unit) capsule Allergies Allergy/AdvReac Type Severity Reaction Status Date / Time No Known Allergies Allergy Verified 03/06/23 18:47 Review of Systems Review of Systems: CONSTITUTIONAL: Denies body aches, fever, chills, or sweats. EYES: Denies visual changes, redness, or discharge. ENT: Denies rhinorrhea, congestion, sore throat, or otalgia. CARDIOVASCULAR: Denies chest pain, palpitations, or edema. RESPIRATORY: Denies cough or dyspnea. GASTROINTESTINAL: Denies abdominal pain, nausea, vomiting, or diarrhea. GENITOURINARY: Denies dysuria or hematuria. SKIN: Denies rash, itching, or wounds. MUSCULOSKELETAL: Reports left great toenail fell off, fungus; Denies back pain, joint pain, or myalgia. NEUROLOGIC: Denies headache, numbness, tingling, or weakness. All systems reviewed & are unremarkable except as noted in HPI and below PMFSH Past Medical History Medical History Anemia Anxiety Breast mass, left Carotid artery stenosis BL CKD (chronic kidney disease) Decreased breath sounds Hypercalcemia Hyperlipidemia Hyperparathyroidism Hypertension Hypothyroidism Surgical History Surgical History H/O carotid endarterectomy Left & intraoperative US 07/11/2018 History of cataract removal with insertion of prosthetic lens BL 06/2015 Family History Family History Mother Hypertension Patient's mother is Sibling Carotid artery stenosis Father Blood clotting disorder Other Family history of lung cancer Social History Social History Smoking packs per day: 0.5 Smoking cigarettes per day: 10.0 Years smoked: 55 Smoking pack-years: 27.50 Smoking status: Former smoker Tobacco type: cigarettes Smoking end date: 06/29/17 Alcohol intake: never Substance use: never Lack of Transportation: No Lack of Food: Never True Current Housing: I Have Housing Concerned About Future Housing: No Difficulty Paying Gas/Electric Bills: No Difficulty Paying for Meds: No Currently Unemployed: No Education: High School Diploma/GED Difficulty w/ Childcare or Family Care: No Gender identity (if verbalized by the patient): Female Spiritual care concerns: No Comments At time of signature, I have reviewed and agree with nursing past medical, surgical, social and family history unless otherwise noted. Please see nursing chart for further information. There is no relevant family history pertinent to the presenting complaint Exam Narrative: GENERAL: Well-appearing EYES: EOMI. ENT: Mucous membranes pink and moist. NECK: Normal AROM. CHEST: Clear to auscultation. HEART: Regular rate and rhythm. . ABDOMEN: Soft, nontender, nondistended, normal active bowel sounds. EXTREMITIES: Left great toenail is absent, nail bed with onychomycosis, mild erythema s
[2023-03-06 18:48] VITALS: BP 117/85; PULSE 93; RESP 16; TEMP 36.8; O2SAT 99
== END 2023-03-06 19:07 | disposition home or self-care (01) ==
PROVIDERS: Emergency Provider Nurse Practitioner Family; PCP Internal Medicine
DX: B35.1 Tinea unguium (principal); Z87.891 Personal history of nicotine dependence; I13.10 Hypertensive heart and chronic kidney disease without heart failure, with stage 1 through stage 4 chronic kidney disease, or unspecified chronic kidney disease; N18.9 Chronic kidney disease, unspecified; I65.23 Occlusion and stenosis of bilateral carotid arteries; E78.5 Hyperlipidemia, unspecified; E21.3 Hyperparathyroidism, unspecified; E03.9 Hypothyroidism, unspecified; Z98.42 Cataract extraction status, left eye; Z98.41 Cataract extraction status, right eye; Z96.1 Presence of intraocular lens; Z79.82 Long term (current) use of aspirin
CPT/HCPCS: 99213; G0463

== ENCOUNTER 2025-02-06 09:40 | Outpatient (CLI) | payer MEDICARE, SELFPAY ==
--- OUTSIDE RECORDS SUMMARY | 2025-02-06 09:46 | XMS_ITS | Clinical Summary ---
Author Organization [facility] Address [facility] [place] [address] Care Team Providers Care Brake Operator Heavy Duty Name Role Phone Esa Barbosa DO Primary Care Provider Josh Guevara DO Unavailable Allergies No known active allergies Medications aspirin EC (ASPIRIN) 81 MG EC tablet Take 81 mg by mouth nightly. Active amLODIPine 5 MG tablet Take 1 tablet by mouth daily. 02/18/2021 Active atorvastatin 10 MG tablet Take 1 tablet by mouth daily. 02/18/2021 Active lisinopril 20 MG tablet Take 1 tablet by mouth daily. 02/25/2021 Active HYDROcodone-titi taminophen 5-325 MG tabletIndicatio ns:Acute Pain < 3 Day Supply Take 1-2 tablets by mouth every 4 (four) hours as needed for Pain. Indications: Acute Pain < 3 Day Supply For Moderate Pain 20 tablet 06/06/2021 Active Active Problems Problem Noted Date Diagnosed Date Left carotid artery stenosis 07/12/2018 Left carotid stenosis 07/12/2018 Anemia 03/23/2018 Family History Medical History Relation Comments Diabetes Father Heart Disease Father Hypertension Mother Relation Status Comments Daughter Alive Father (Age 78) blood clot Mother (Age 93) old age Sister Alive poss breast canc er Son 1 Alive Son 2 Alive Son 3 (Age 2 days) intestinal obstruction Social History Tobacco Use Types Packs/Day Years Used Date Smoking Tobacco: Former Cigarettes 0.5 55 0 11/19/1962 - 11/19/2017 Smokeless Tobacco: Never Alcohol Use Standard Drinks/Week Comments No 0 (1 standard drink = 0.6 oz pur e alcohol) AUDIT-C Answer Date Recorded Frequency of Alcohol Consumption Never 03/22/2018 Average Number of Drinks Not on file 018 Frequency of Binge Drinking Not on file 02/28 Comments No Sex and Gender Information Value Date Recorded Sex Assigned at Not on file Legal Sex Female 9:57 AM CDT Gender Identity Not on file Sexual Orientation Straight 07/12/2018 11 :48 AM PASTA PRESS OPERATOR Last Filed Vital Signs Vital Sign Reading Time Taken Comments Blood Pressure 138/49 06/06/2021 12:20 PM PASTA PRESS OPERATOR Pulse 73 06/06/2021 12:20 PM PASTA PRESS OPERATOR Temperature 36.5 C (97.7 F) 06/06/2021 12:20 PM PASTA PRESS OPERATOR Respiratory Rate 18 06/06/2021 12:20 PM PASTA PRESS OPERATOR Oxygen Saturation 100% 06/06/2021 12:20 PM PASTA PRESS OPERATOR Inhaled Oxygen Concentration - - Weight 72 kg (158 lb 11.7 oz) 06/06/2021 7:30 AM PASTA PRESS OPERATOR Height 154.9 cm (5' 1) 06/06/2021 7:30 AM PASTA PRESS OPERATOR Body Mass Index 29.99 06/06/2021 7:30 AM PASTA PRESS OPERATOR Plan of Treatment Upcoming Encounters Date Type Department Care Team (Late st Contact Info) Description 05/12/2025 8:00 AM PASTA PRESS OPERATOR Appointment [facility] Mammography [address] [place], [place] [id number] Eric Box MD [address] [place] [id number] Health Maintenance Due Date Last Done Comments DTaP, Tdap and Td Vaccines (1 - Tdap) 1961 Pneumococcal Vaccine: 50+ Years (1 of 1 - PCV) 02/13/1992 Zoster Vaccines (1 of 2) 02/13/1992 Annual Medicare Wellness Visit 2007 RSV Immunization or 60+ Years (1 - 1-dose 75+ series) 2017 COVID-19 Vaccine ( season) 2024 06/18/2021, 09/01/2020, 08/05/2020 Dexa Scan (General) Completed 02/23/2024, 02/23/2024, 12/11/2021, Additional history exists Meningococcal B Vaccine Aged Out No l onger eligible based on patient's age to complete this topic Meningococcal Vaccine Aged Out No eddie boris eligible based on patient's age to complete this topic RSV Immunizations Under 20 Months Aged Out No longer eligible based on patient's age to complete this topic Medical Devices Implanted Type Area Manager Latin Device Identifier Shelf Expiration Date Model / Serial / Lot Patch Cv Thk.36mm; Ulthn; Taper 6x.3in Knit; - [id number] Implanted:Qty: 1 on 07/12/2018 by Jt Hernandez MD at [facility] Left: Neck [employer] 02/26/2023 [id number] / [id number] / [id number] Insurance MEDICARE [facility] Care Teams Brake Operator Heavy Duty Relationship Specialty Start Date End Date Esa Barbosa DO [address] [place] [address] PCP - General INTERNAL MEDICINE 03/22/18 Josh Guevara DO [address] [place] [address] INTERNAL MEDICINE 07/05/18
[2025-02-06 13:01] LABS: Hematocrit 47.1 % (37.0-47.0); Hemoglobin 15.5 g/dL (12.0-15.0); Immature Granulocyte Percent A 0.2 % (0-0.5); Lymphocytes Absolute Auto 0.93 K/mm3 (0.9-3.2); Mean Corpuscular HGB Conc 32.9 g/dl (32-36); Mean Corpuscular Hemoglobin 30.5 pg (26-34); Mean Corpuscular Volume 92.5 fl (80-100); Nucleated Red Blood Cells Absolute Auto 0.000 K/mm3 (0.0-0.012); Nucleated Red Blood Cells Perc 0.0 % (0.0-0.2); Platelet Count Result 166 k/mm3 (150-375); Red Blood Count 5.09 M/mm3 (4.2-5.4); White Blood Count 4.3 K/mm3 (4.5-10.0)
[2025-02-06 13:17] LABS: Alanine Aminotransferase 23 U/L (6-35); Albumin Level 4.5 g/dL (3.5-5.1); Alkaline Phosphatase 92 U/L (38-126); Anion Gap 7 mmol/L (4-12); Aspartate Amino Transferase 53 U/L (14-36); Bilirubin,Total 1.7 mg/dL (0.2-1.3); Blood Urea Nitrogen 18 mg/dL (7-17); Calcium 10.6 mg/dL (8.4-10.2); Carbon Dioxide 26 mmol/L (22-30); Chloride 104 mmol/L (98-107); Cholesterol 212 mg/dL (0-200); Estimated Glomerular Filt Rate > 60; Glucose 94 mg/dL (65-110); HDL Direct 91 mg/dL; Potassium 5.0 mmol/L (3.4-5.0); Sodium 137 mmol/L (137-145); Total Protein 7.5 g/dL (6.3-8.2); Triglycerides 89 mg/dL (<150)
[2025-02-06 15:25] LABS: Hemoglobin A1C 5.6 % (<5.7)
[2025-02-06 16:46] LABS: Parathyroid Intact 84.2 pg/mL (14.5-75.2)
== END 2025-02-06 09:41 | disposition home or self-care (01) ==
LOC: ANHGOSHLAB 09:41
PROVIDERS: PCP Internal Medicine; Visit Provider Clinical Nurse Specialist
DX: D72.819 Decreased white blood cell count, unspecified (principal); Z13.228 Encounter for screening for other metabolic disorders; J43.9 Emphysema, unspecified; E87.1 Hypo-osmolality and hyponatremia; E21.3 Hyperparathyroidism, unspecified; R73.01 Impaired fasting glucose; I12.9 Hypertensive chronic kidney disease with stage 1 through stage 4 chronic kidney disease, or unspecified chronic kidney disease; N18.9 Chronic kidney disease, unspecified
CPT/HCPCS: 36415; 80053; 80061; 83036; 83970; 85025

== ENCOUNTER 2025-02-15 09:52 | Outpatient (CLI) | payer MEDICARE, SELFPAY ==
--- OUTSIDE RECORDS SUMMARY | 2025-02-15 10:00 | XMS_ITS | Clinical Summary ---
Author Organization [facility] Address [address] [place] [id number] Care Team Providers Care Lead Ramp Agent Name Role Phone Esa Barbosa DO Primary Care Provider [phone] Eric Box MD Unavailable [phone] Flynn Hernandez MD Unavailable [phone] Nora Fountain NP Unavailable [phone] Allergies No known active allergies Medications lisinopriL (PRINIVIL,ZESTRIL) 20 mg tablet 1 Active atorvastatin (LIPITOR) 10 mg tablet 1 Active aspirin 81 mg enteric coated tablet Take 1 tablet (81 mg total) by mouth nightly Active prednisoLONE acetate (PRED FORTE) 1 % ophthalmic suspension As needed 2 Active amLODIPine (NORVASC) 10 mg tablet 2 Active calcium carbonate-vitamin D3 1,500 mg (600 mg elemental)-1,000 unit capsule Take by mouth Active letrozole (FEMARA) 2.5 mg tabletIndications:E kevin Breast Cancer HR Positive and Postmenopausal Take 1 tablet (2.5 mg total) by mouth daily 90 tablet 3 4 Active Active Problems Problem Noted Date Diagnosed Date Localized osteoporosis witho ut current pathological fracture 03/01/2024 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 03/01/2024 Vitamin D deficiency 02/10/2024 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, estrogen receptor positive 04/11/2021 Cancer Staging:Clinical:Stage IA(cT1c, cN0, cM0, G1, ER+, NM+, HER2-) - Signed by Flynn Hernandez MD on 04/17/2021 Immunizations Immunization Administration Dates Next Due Influenza, Unspecified 03/27/2021 Pfizer SARS-CoV-2 Monovalent Vaccination (12+ Yrs) PURPLE 06/18/2021 Surgical History Surgery Date Site/Laterality Comments BREAST BIOPSY ARTERY SURGERY Left Carotid artery Medical History Medical History Date Comments Hypercholesteremia Hypertension Family History Medical History Relation Name Comments Lung cancer Brother Lung cancer Sister Relation Name Status Comments Brother Sister Social History Tobacco Use Types Packs/Day Years Used Date Smoking Tobacco: Former Cigarettes Q uit: 06/2017 Smokeless Tobacco: Never AUDIT-C Answer Date Recorded Frequency of Alcohol Consumption Not on file 08/21/2022 Q2: How many drinks containi ng alcohol do you have on a typical day when you are drinking? Patient does not drink Frequency of Binge Drinking Not on file 07/31 Personal Safety Answer Date Recorded Getting School Help Needed Not on file 06/17 Comments Unknown Sex and Gender Information Value Date Recorded Sex Assigned at Not on file Legal Sex Female 9:08 AM CDT Gender Identity Not on file Sexual Orientation Not on file Obstetrics History Last Filed Vital Signs Vital Sign Reading Time Taken Comments Blood Pressure 146/68 03/01/2024 8:01 AM CDT Pulse 80 03/01/2024 8:01 AM CDT Temperature 36.9 C (98.4 F) 03/01/2024 8:01 AM CDT Respiratory Rate 16 03/01/2024 8:01 AM CDT Oxygen Saturation 97% 03/01/2024 8:01 AM CDT Inhaled Oxygen Concentration - - Weight 71.1 kg (156 lb 12.8 oz) 03/01/2024 8:01 AM CDT Height 154.9 cm (5' 1) 02/20/2023 8:37 AM CDT Body Mass Index 29.63 02/20/2023 8:37 AM CDT Plan of Treatment Health Maintenance Due Date Last Done Comments Depression Screening 1942 Fall Risk Assessment 1942 DTaP/Tdap/Td Vaccine (1 - Tdap) 1953 Hepatitis B Screening 02/13/1960 Pneumococcal vaccine 65+ (1 of 2 - PCV) 1961 Zoster Vaccine (1 of 2) 1961 Well Visit 65+ 2007 Covid-19 Vaccine ( season) 2024 06/18/2021, 09/01/2020, 08/05/2020 Influenza Vaccine (#1) 2025 03/27/2021 Osteoporosis Screening-Bone Density Scan 02/22/2026 02/23/2024, 12/11/2021 Procedures Procedure Name Priority Date/Time Associated Diagnosis Comments DEXA AXIAL SKELETON BONE DENSITY 1 OR MORE SITES Schedule Routine, Read Routine (OP Routine) 02/23/2024 8:11 AM CDT Postmenopausal osteoporosis from Last 3 Months or Most Recently Relevant to Health Maintenance Results * Dexa Axial Skeleton Bone Density 1 or 2 Site (02/23/2024 8:11 AM CDT) Anatomical Region Laterality Modality Body N/A Mammography 02/23/2024 6:20 PM CDT Narrative 02/23/2024 6:22 PM CDT EXAM DESCRIPTION: DEXA AXIAL SKELETON BONE DENSITY 1 OR MORE SITES REASON FOR STUDY: 84 y/o year old F with given history of: postmenopausal osteoporosis Manufacturing Design Engineer/Model: Trelligence A (S/N [id number]) CLINICAL INFORMATION: Current height: 64 inches Maximum height: 64 inches Weight: 207 pounds Risk factors: Postmenopausal COMPARISON: None available FINDINGS: AP LUMBAR SPINE L1-L4: Total BMD is 0.800 g/cm2 T-score is -3.2 LEFT HIP: Total BMD is 0.971 g/cm2 T-score is -0.4 Femoral neck BMD is 0.872 g/cm2 T-score is -0.6 FRAX: FRAX not reported due to T-scores of hip, femoral neck and/or spine being at or below -2.5 (Osteoporosis). IMPRESSION: Osteoporosis. REFERENCE: Bone mineral density: T-Score: Normal (T-score above or = -1.0) Low bone mass (T-score between -1.0 and -2.5) replaces the previously used term osteopenia Osteoporosis (T-score = or below -2.5) Z-Score: Within the expected range for age (Z-score above -2.0) Below the expected range for age (Z-score is -2.0 or below) Please see below follow up recommendations. Medical evaluation for secondary causes of low bone mineral density may be appropriate. FRAX is a World Health Organization validated fracture risk assessment tool that calculates a person's 10 year probability of a major osteoporosis related fracture and hip fracture. According to the National Osteoporosis Foundation guidelines, postmenopausal women and men age 50 or older with low bone mass and a 10 year probability of a major osteoporosis related fracture = or greater than 20% or a 10 year probability of a hip fracture = or greater than 3% should be considered for pharmacological treatment for the prevention of osteoporosis. For further information, including treatment recommendations, please refer to the 2019 ISCD Official Positions (http://www.iscd.org) and the NOF's Clinician's Guide to Prevention and Treatment of Osteoporosis (http://www.nof.org/professionals/clinical-guidelines) THIS IS AN ELECTRONICALLY VERIFIED FINAL REPORT 02/23/2024 6:22 PM - Electronically signed by Eric Tariq M.D. MF: [id number] Report ID: [id number] Reading Location: [place] [address] Procedure Note Eric Tariq MD - 02/23/2024 EXAM DESCRIPTION: DEXA AXIAL SKELETON BONE DENSITY 1 OR MORE SITES REASON FOR STUDY: 84 y/o year old F with given history of:postmenopausal osteoporosis Manufacturing Design Engineer/Model: Trelligence A (S/N [id number]) CLINICAL INFORMATION: Current height: 64 inches Maximum height: 64 inches Weight: 207 pounds Risk factors: Postmenopausal COMPARISON: None available FINDINGS: AP LUMBAR SPINE L1-L4: Total BMD is 0.800 g/cm2 T-score is -3.2 LEFT HIP: Total BMD is 0.971 g/cm2 T-score is -0.4 Femoral neck BMD is 0.872 g/cm2 T-score is -0.6 FRAX: FRAX not reported due to T-scores of hip, femoral neck and/or spine beingat or below -2.5 (Osteoporosis). IMPRESSION: Osteoporosis. REFERENCE: Bone mineral density: T-Score: Normal (T-score above or = -1.0) Low bone mass (T-score between -1.0 and -2.5) replaces thepreviously used term osteopenia Osteoporosis (T-score = or below -2.5) Z-Score: Within the expected range for age (Z-score above -2.0) Below the expected range for age (Z-score is -2.0 or below) Please see below follow up recommendations. Medical evaluation forsecondary causes of low bone mineral density may be appropriate. FRAX is a World Health Organization validated fracture risk assessmenttool that calculates a person's 10 year probability of a major osteoporosisrelated fracture and hip fracture. According to the National OsteoporosisFoundation guidelines, postmenopausal women and men age 50 or older with low bonemass and a 10 year probability of a major osteoporosis related fracture = or greater than 20% or a 10 year probability of a hip fracture = or greaterthan 3% should be considered for pharmacological treatment for the preventionof osteoporosis. For further information, including treatment recommendations, please referto the 2019 ISCD Official Positions (http://www.iscd.org) and the NOF's Clinician's Guide to Prevention and Treatment of Osteoporosis (http://www.nof.org/professionals/clinical-guidelines) THIS IS AN ELECTRONICALLY VERIFIED FINAL REPORT 02/23/2024 6:22 PM - Electronically signed by Eric Tariq M.D. MF: [id number] Report ID: [id number] Reading Location: [place] [address] Nora Fountain NP IMG DXA PROCEDURES F inal Result from Last 3 Months or Most Recently Relevant to [place] [address] MEDICARE [facility] MEDICARE [facility] Care Teams Lead Ramp Agent Relationship Specialty Start Date End Date Esa Barbosa DO PCP - General Internal Medicine 04/02/21 Eric Box MD [address] [place] [id number] Referring Physician General Surgery 04/17/21 Flynn Hernandez MD [address] [place] [phone] Radiation Oncologist Radiation Oncology 04/17/21 Nora Fountain NP [address] [place] [phone] Nurse Practitioner Medical Oncology 07/21/22
--- OUTSIDE RECORDS SUMMARY | 2025-02-15 10:00 | XMS_ITS ---
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 Past Treatment and Therapy Plans No past plan information found.
--- OUTSIDE RECORDS SUMMARY | 2025-02-15 10:00 | XMS_ITS | Clinical Summary ---
Author Organization [facility] Address [facility] [place] [address] Care Team Providers Care Uniform Cap Operator Name Role Phone Esa Barbosa DO Primary Care Provider [phone] Josh Guevara DO Unavailable Allergies No known [...] Sexual Orientation Straight 07/12/2018 11 :48 AM COWLMAN Last Filed Vital Signs Vital Sign Reading Time Taken Comments Blood Pressure 138/49 06/06/2021 12:20 PM COWLMAN Pulse 73 06/06/2021 12:20 PM COWLMAN Temperature 36.5 C (97.7 F) 06/06/2021 12:20 PM COWLMAN Respiratory Rate 18 06/06/2021 12:20 PM COWLMAN Oxygen Saturation 100% 06/06/2021 12:20 PM COWLMAN Inhaled Oxygen Concentration - - Weight 72 kg (158 lb 11.7 oz) 06/06/2021 7:30 AM COWLMAN Height 154.9 cm (5' 1) 06/06/2021 7:30 AM COWLMAN Body Mass Index 29.99 06/06/2021 7:30 AM COWLMAN Plan of Treatment Upcoming Encounters Date Type Department Care Team (Late st Contact Info) Description 05/12/2025 8:00 AM COWLMAN Appointment [facility] Mammography [place], [place] [id number] Eric Box MD [address] [place] [phone] Health Maintenance Due Date Last Done [...] this topic Medical Devices Implanted Type Area Tool Hardener Device Identifier Shelf Expiration Date Model / Serial / Lot Patch Cv Thk.36mm; Ulthn; Taper 6x.3in Knit; - [id number] Implanted:Qty: 1 on 07/12/2018 by Jt Hernandez MD at [facility] Left: Neck [employer] 02/26/2023 [id number] / [id number] / [id number] Insurance MEDICARE [facility] Care Teams Uniform Cap Operator Relationship Specialty Start Date End Date Esa Barbosa DO [address] [place] [address] PCP - General INTERNAL MEDICINE 03/22/18 Josh Guevara DO [address] [place] [address] INTERNAL MEDICINE 07/05/18
--- NOTE | 2025-02-15 13:13 | WPDPFTINT ---
PFT Procedure Performed PFT Procedure Performed Spirometry with Pre/Post Bronchodilator Plethysmography (Lung Vol) Diffusing Cap (DLCO) Flow Vol Loop PFT Interpretation This is a pulmonary function test with pre and post-bronchodilator spirometry, plethysmography and diffusing capacity. The test was performed and results interpreted in accordance with the 2019 and 2005 ATS/ERS Task Force guidelines respectively using the Global Lung Function Initiative-2012 reference equations. Patient demonstrated good effort and cooperation. Reproducibility criteria were met. The quality of the pre bronchodilator spirometry maneuver was Grade A and post bronchodilator spirometry maneuver was Grade A. Findings: Spirometry: There is decreased maximal expiratory airflow at all lung volumes with a concave expiratory flow tracing. The contour the inspiratory flow tracing is normal. The pre bronchodilator FVC is 2.07 L, 94% predicted. The pre bronchodilator FEV1 is 1.06 L, 63% predicted. The pre bronchodilator FEV1: FVC ratio is 51%. The post bronchodilator FVC is 2.17 L, representing a 5% increase. The post bronchodilator FEV1 is 1.08 L, representing a 2% increase. The post bronchodilator FEV1: FVC ratio is 50%. Plethysmography: The total lung capacity is 4.68 L, 102% predicted. The functional residual capacity is 3.33 L, 125% predicted. The residual volume is 2.61 L, 113% predicted. Diffusing capacity: The diffusing capacity unadjusted for hemoglobin and carboxyhemoglobin is 8.4, 47% predicted. The diffusing capacity adjusted for alveolar volume is 2.99, 71% predicted. Impression: There is a moderate obstructive abnormality. There is no significant improvement after inhaling a single dose of albuterol. The lung volumes are normal. The diffusing capacity unadjusted for hemoglobin and carboxyhemoglobin is moderately decreased and normalizes when adjusted for alveolar volume. There are no prior studies for comparison
== END 2025-02-15 09:53 | disposition home or self-care (01) ==
PROVIDERS: PCP Internal Medicine; Visit Provider Clinical Nurse Specialist
DX: J43.9 Emphysema, unspecified (principal)
CPT/HCPCS: 94060; 94726; 94729

== ENCOUNTER 2025-02-17 07:02 | Outpatient (CLI) | payer MEDICARE, SELFPAY ==
--- NOTE | ~2025-02-17 | CT_ITS ---
Clinical Indication: Dyspnea CT Scan of the Chest with Contrast: Technique: Contiguous sections were acquired throughout the chest after intravenous administration of 75 cc of Omnipaque 350. Dose reduction technique was used on this scan by utilizing automated exposure control and iterative reconstruction technique. The dose-length product (DLP) was 149.26 mGy-cm. Findings: There is no evidence of any significant mediastinal, hilar or axillary lymphadenopathy. Mediastinal vascular structures and soft tissues are unremarkable. There is no evidence of pleural or pericardial effusion. The lungs are clear. No pulmonary nodules or infiltrates are noted. There is mild to moderate emphysema, especially the upper lobes. Images through the upper abdomen reveal a 3.0 x 2.0 cm subcutaneous cyst in the anterior midline in the upper abdomen, likely a large sebaceous cyst.. Impression: Emphysema, as above. 3.0 x 2.0 cm probable sebaceous cyst, as detailed above. Reviewed, dictated and finalized at [facility]. Impression: Emphysema, as above. 3.0 x 2.0 cm probable sebaceous cyst, as detailed above.
--- OUTSIDE RECORDS SUMMARY | 2025-02-17 07:08 | XMS_ITS | Clinical Summary ---
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 MF: SERGO Report ID: [id number] Reading Location: [place] [address] Procedure Note Eric Tariq MD - 02/23/2024 EXAM DESCRIPTION: DEXA AXIAL SKELETON BONE DENSITY 1 OR MORE SITES REASON FOR STUDY: 84 y/o year old F with given history of:postmenopausal osteoporosis Base Cloth Inspector/Model: Xapo A (S/N [id number]) CLINICAL INFORMATION: Current height: 64 inches Maximum [...] Eric Tariq M.D. MF: SERGO Report ID: [id number] Reading Location: [place] [address] Nora Fountain NP IMG DXA PROCEDURES F inal Result from Last 3 Months or Most Recently Relevant to Health [place] [address] MEDICARE [facility] MEDICARE [facility] Care Teams Motor Bike Mechanic Relationship Specialty Start Date End Date Esa Barbosa DO PCP - General Internal Medicine 04/02/21 Eric Box MD [address] [place] [address] [id number] Referring Physician General Surgery 04/17/21 Flynn Hernandez MD [address] [place] [address] [id number] Radiation Oncologist Radiation Oncology 04/17/21 Nora Fountain NP [address] [place] [address] [id number] Nurse Practitioner Medical Oncology 07/21/22
--- OUTSIDE RECORDS SUMMARY | 2025-02-17 07:08 | XMS_ITS ---
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 Past Treatment and Therapy Plans No past plan information found.
== END 2025-02-17 07:03 | disposition home or self-care (01) ==
PROVIDERS: PCP Internal Medicine; Visit Provider Clinical Nurse Specialist
DX: R06.00 Dyspnea, unspecified (principal); J43.9 Emphysema, unspecified
CPT/HCPCS: 71260; Q9967

== ENCOUNTER 2025-06-06 09:03 | Outpatient (CLI) | payer MEDICARE, SELFPAY ==
[2025-06-06 13:06] LABS: Anion Gap 5 mmol/L (4-12); Blood Urea Nitrogen 21 mg/dL (7-17); Calcium 9.9 mg/dL (8.4-10.2); Carbon Dioxide 28 mmol/L (22-30); Chloride 102 mmol/L (98-107); Estimated Glomerular Filt Rate 51; Glucose 96 mg/dL (65-110); Potassium 4.9 mmol/L (3.4-5.0); Sodium 135 mmol/L (137-145)
[2025-06-06 13:17] LABS: Parathyroid Intact 135.3 pg/mL (14.5-75.2)
[2025-06-07 15:09] LABS: Calcium, Ionized 5.1 mg/dL (4.5-5.6)
== END 2025-06-06 09:04 | disposition home or self-care (01) ==
LOC: ANHGOSHLAB 09:04
PROVIDERS: PCP Internal Medicine; Visit Provider Clinical Nurse Specialist
DX: E21.3 Hyperparathyroidism, unspecified (principal); I10 Essential (primary) hypertension
CPT/HCPCS: 36415; 80048; 82330; 83970